=== PATIENT | male | born 1975 | race Caucasian/White ===

== ENCOUNTER → 2019-06-16 | Outpatient (CLI) | payer BC ==
--- NOTE | 2019-06-16 11:46 | Diagnostic Imaging Report ---
Thyroid ultrasound CPT code: 87752 History: Neck swelling Comparison: None Findings: The thyroid echotexture is normal. Vascularity is normal. The right lobe measures 5.3 x 1.9 x 1.8 cm. The left lobe measures 5.2 x 1.8 x 1.7 cm. The isthmus measures 0.7 cm. Nodules (measurements are AP, transverse, craniocaudal): Right Lobe: No cystic mass or discrete solid nodule identified. Left Lobe: 1.5 x 0.7 x 1.3 cm hypoechoic solid nodule at the superior pole, wider than tall, without internal calcification (TI-RADS 4) 0.6 x 0.2 x 0.6 cm hypoechoic solid nodule at the mid pole, wider than tall without internal calcifications (TI-RADS 4) Isthmus: No cystic mass or discrete solid nodule identified. Lymph Nodes: 0.8 x 0.3 cm lymph node superior to the isthmus. Parathyroids: Not visualized. IMPRESSION: 1.5 x 0.7 x 1.3 cm hypoechoic solid nodule at the left thyroid superior pole, wider than tall, without internal calcification (TI-RADS 4). Recommend FNA. 0.6 x 0.2 x 0.6 cm hypoechoic solid nodule at the left thyroid mid pole, wider than tall without internal calcifications (TI-RADS 4). Recommend follow-up at 1,2, 3 and 5 years. ACR glossary of thyroid rads TI-RADS 1: No focal lesion. TI-RADS 2: Not suspicious. TI-RADS 3: Mildly suspicious (recommend FNA is greater than or equal to 2.5 cm; follow-up at 1, 3, and 5 years if greater than or equal to 1.5 cm) TI-RADS 4: Moderately Suspicious (recommend FNA is greater than or equal to 1.5 cm; follow-up at 1, 2, 3, and 5 years) TI-RADS 5: Highly suspicious (recommend FNA is greater than or equal to 10 mm) TI-RADS 6: Biopsy-proven malignancy Signed by: Andrew Rasheed MD on 06/16/2019 11:43 AM
== END ==
LOC: US 10:22
PROVIDERS: ATTEND Internal Medicine
DX: R22.1 Localized swelling, mass and lump, neck (principal)
CPT/HCPCS: 76536

== ENCOUNTER → 2019-06-27 | Outpatient (CLI) | payer BC ==
--- NOTE | 2019-07-13 12:06 | Diagnostic Imaging Report ---
EXAM: Complete Abdominal Ultrasound INDICATION: Generalized abdominal pain COMPARISON: None. TECHNIQUE: Transverse and longitudinal images of the upper abdomen were obtained. FINDINGS: Liver: Size: 15.9 cm in the right midclavicular line, upper limit of normal Appearance: Increased echogenicity, smooth contour Mass: No focal masses Spleen: Size: 11.0 cm in length, normal Echogenicity: Normal Mass: No focal masses Gallbladder: Stones/Sludge: None Wall: 0.2 cm Appearance: No wall thickening, pericholecystic fluid or hydrops. Sonographic Hsieh's Sign: Negative Bile Ducts: Intrahepatic Ducts: No dilatation Extrahepatic Ducts: Common bile duct measures 0.3 cm, no dilatation Pancreas: Visualized portions of the neck and proximal body are unremarkable. Kidneys: Length: Right 10.5 cm Left 11.5 cm Echogenicity: Normal Collecting System: No hydronephrosis Stone: None Cyst/Mass: 2.2 x 1.3 x 1.4 cm cystic, mostly anechoic lesion in the interpolar region of the right kidney, which contains a single thin nonvascular septation. No mural nodules 2.7 x 2.1 x 2.3 cm mostly exophytic anechoic lesion in the mid aspect of the left kidney. 1.4 x 0.9 x 1.2 cm mostly exophytic cystic, anechoic lesion in the lateral superior aspect of the left kidney. 2.9 x 2.6 x 2.8 cm mostly exophytic cystic, anechoic lesion in the medial inferior aspect of the left kidney Vessels: Aorta: Visualized portions are normal Inferior Vena Cava: Visualized portions are normal Main Portal Vein: 1.0 cm, normal size with hepatopetal flow. Free Fluid: No ascites or pleural effusion IMPRESSION: 1. Hepatic steatosis. No focal lesions. 2. Minimally complex cyst in the interpolar region of the right kidney, which requires no further follow-up. 3. 3 simple left renal cysts, which require no further follow-up. Signed by: Dr. Maxx Sy M.D. on 07/13/2019 12:03 PM
== END ==
LOC: US 16:09
PROVIDERS: ATTEND Internal Medicine Gastroenterology
DX: R10.84 Generalized abdominal pain (principal)
CPT/HCPCS: 76700

== ENCOUNTER → 2019-09-19 | Day surgery (SDC) | payer BC ==
[~2019-09-19] MED LIST: ARMOUR THYROID60 MG PO; DIOVAN80 MG PO; FENTANYL CITRATE/PF 100MCG/2 ML INJ ONE; HYOSCYAMINE 0.125 MG TAB ONE; MIDAZOLAM HCL 2 MG/2 ML VIAL ONE; PROPOFOL IV EMULSION 10 MG/ML 50 ML VIAL ONE
--- OUTSIDE RECORDS SUMMARY | 2019-09-19 08:52 | XMS REPORT ---
Author Author [facility] Address Unknown Phone Unavailable Care Team Providers Care Shirt Presser Name Role Phone CANDACE EMERY Unavailable Unavailable Cookie ORDOÑEZ Unavailable Unavailable Problems This patient has no known problems. Allergies, Adverse Reactions, Alerts This patient has no known allergies or adverse reactions. Medications This patient has no known medications. Results Test Description Test Time Test Comments Text Results Atomic Results Result Comments US ABDOMEN COMPLETE 2019-06-27 19:55:00 [place] [address] Patient Name: MARTÍN GTZ MR #: [id number] : 1975 Age/Sex: 44/M Req #: [id number] Adm Physician: Ordered by: CANDACE EMERY MD Report #: [id number] Location: US Room/Bed: Procedure: [id number] US/US ABDOMEN COMPLETE Exam Date: 06/27/19 Exam Time: 1645 REPORT STATUS: Signed EXAM: Complete Abdominal Ultrasound INDICATION: Generalized abdominal pain COMPARISON: None. TECHNIQUE: Transverse and longitudinal images of the upper abdomen were obtained. FINDINGS: Liver: Size: 15.9 cm in the right midclavicular line, upper limit of normal Appearance: Increased echogenicity, smooth contour Mass: No focal masses Spleen: Size: 11.0 cm in length, normal Echogenicity: Normal Mass: No focal masses Gallbladder: Stones/Sludge: None Wall: 0.2 cm Appearance: No wall thickening, pericholecystic fluid or hydrops. Sonographic Hsieh's Sign: Negative Bile Ducts: Intrahepatic Ducts: No dilatation Extrahepatic Ducts: Common bile duct measures 0.3 cm, no dilatation Pancreas: Visualized portions of the neck and proximal body are unremarkable. Kidneys: Length: Right 10.5 cm Left 11.5 cm Echogenicity: Normal Collecting System: No hydronephrosis Stone: None Cyst/Mass: 2.2 x 1.3 x 1.4 cm cystic, mostly anechoic lesion in the interpolar region of the right kidney, which contains a single thin nonvascular septation. No mural nodules 2.7 x 2.1 x 2.3 cm mostly exophytic anechoic lesion in the mid aspect of the left kidney. 1.4 x 0.9 x 1.2 cm mostly exophytic cystic, anechoic lesion in the lateral superior aspect of the left kidney. 2.9 x 2.6 x 2.8 cm mostly exophytic cystic, anechoic lesion in the medial inferior aspect of the left kidney Vessels: Aorta: Visualized portions are normal Inferior Vena Cava: Visualized portions are normal Main Portal Vein: 1.0 cm, normal size with hepatopetal flow. Free Fluid: No ascites or pleural effusion IMPRESSION: 1. Hepatic steatosis. No focal lesions. 2. Minimally complex cyst in the interpolar region of the right kidney, which requires no further follow-up. 3. 3 simple left renal cysts, which require no further follow-up. Signed by: Dr. Benny Sy M.D. on 07/13/2019 12:03 PM Dictated By: BENNY SY MD 1203 Transcribed By: JAILENE on 07/13/19 1203 COPY TO: CANDACE EMERY MD THYROID 2019-06-16 11:35:00 [place] [address] Patient Name: MARTÍN GTZ MR #: [id number] : 1975 Age/Sex: 44/M Req #: [id number] Adm Physician: Ordered by: AURY ORDOÑEZ MD Report #: [id number] Location: Room/Bed: Procedure: [id number] US/US THYROID Exam Date: Exam Time: REPORT STATUS: Signed Thyroid ultrasound CPT code: 31564 History: Neck swelling Comp arison: None Findings: The thyroid echotexture is normal. Vascularity is normal. The right lobe measures 5.3 x 1.9 x 1.8 cm. The left lobe measures 5.2 x 1.8 x 1.7 cm. The isthmus measures 0.7 cm. Nodules (measurements are AP, transverse, craniocaudal): Right Lobe: No cystic mass or discrete solid nodule identified. Left Lobe: 1.5 x 0.7 x 1.3 cm hypoechoic solid nodule at the superior pole, wider than tall, without internal calcification (TI-RADS 4) 0.6 x 0.2 x 0.6 cm hypoechoic solid nodule at the mid pole, wider than tall without internal calcifications (TI- RADS 4) Isthmus: No cystic mass or discrete solid nodule identified. Lymph Nodes: 0.8 x 0.3 cm lymph node superior to the isthmus. Parathyroids: Not visualized. IMPRESSION: 1.5 x 0.7 x 1.3 cm hypoechoic solid nodule at the left thyroid superior pole, wider than tall, without internal calcification (TI-RADS 4). Recommend FNA. 0.6 x 0.2 x 0.6 cm hypoechoic solid nodule at the left thyroid mid pole, wider than tall without internal calcifications (TI-RADS 4). Recommend follow-up at 1,2, 3 and 5 years. ACR glossary of thyroid rads TI-RADS 1: No focal lesion. TI-RADS 2: Not suspicious. TI-RADS 3: Mildly suspicious (recommend FNA is greater than or equal to 2.5 cm; follow-up at 1, 3, and 5 years if greater than or equal to 1.5 cm) TI-RADS 4: Moderately Suspicious (recommend FNA is greater than or equal to 1.5 cm; follow-up at 1, 2, 3, and 5 years) TI-RADS 5: Highly suspicious (recommend FNA is greater than or equal to 10 mm) TI-RADS 6: Biopsy-proven malignancy Signed by: Sia Callahan MD on 06/16/2019 11:43 AM Dictated By: SIA CALLAHAN MD 1143 Transcribed By: JAILENE on 06/16/19 1143 COPY TO: AURY ORDOÑEZ MD
[2019-09-19 13:30] VITALS: BP 112/70
--- NOTE | 2019-09-19 19:30 | Operative Report ---
DATE OF PROCEDURE: 09/19/2019 SURGEON: Reggie Collins MD PROCEDURE: Esophagogastroduodenoscopy with biopsies and esophageal dilatation and colonoscopy with biopsies. REFERRING PHYSICIAN: Dr. Genoveva Acosta INDICATIONS FOR EGD: Dysphagia, acid reflux. INDICATIONS FOR COLONOSCOPY: Diarrhea, rectal pain. MEDICATION: The patient was done under MAC, please see anesthesiologist's note. PROCEDURE IN DETAIL: With the patient in left lateral decubitus position, a flexible fiberoptic Olympus gastroscope was introduced into the esophagus under direct visualization without any difficulty. There was some patchy erythema noted in distal esophagus. A mild stricture was noted at the GE junction, that was dilated to size 52-[place]. The scope was then advanced with ease into the stomach. Mucosa overlying the antrum and the body revealed some patchy erythema and low-grade to moderate edema and biopsies were obtained and sent to stain for H pylori. Pylorus was of normal contour and shape, was intubated with ease and the scope was advanced all the way to the second portion of the duodenum. Biopsies were obtained from the proximal second portion and duodenal bulb to rule out sprue. The scope was then withdrawn back into the stomach and retroflexed, and mucosa overlying the fundus and the cardia appeared to be within normal limits. The scope was then straightened out. The stomach was decompressed. The scope was subsequently withdrawn. The patient tolerated procedure well. IMPRESSION: 1. Distal esophagitis, mild. 2. Esophagus dilated to size 52-[place]. 3. Gastritis, biopsied. Biopsies sent to stain for Helicobacter pylori. 4. Rule out sprue. PLAN: Follow up histology. Initiate Protonix 40 mg one p.o. q.a.m. a.c. The patient was then turned around after adequate lubrication of the anal canal and flexible fiberoptic Olympus. Colonoscope was inserted into the rectum with ease and advanced all the way to the cecum. The ileocecal valve was intubated and the scope was advanced into the terminal ileum. Biopsies were obtained. The scope was then withdrawn back into the colon. It was then withdrawn slowly. Mucosa overlying the ascending colon, transverse colon grossly was unremarkable. Mild patchy inflammatory changes were noted in the left colon including the rectum and biopsies were obtained. A minute raised area was noted in the distal rectum just proximal to the dentate line and that was biopsied. Some small internal hemorrhoids were noted on retroflexion. The scope was then straightened out, it was subsequently withdrawn. The patient tolerated procedure well. IMPRESSION: 1. Mild patchy left-sided colitis. 2. Proctitis. 3. Focal raised area distal rectum just proximal to the dentate line, biopsied. 4. Internal hemorrhoids, none actively bleeding. PLAN: Follow up histology. Initiate Bentyl 20 mg one p.o. t.i.d. VSL #3 one p.o. daily. Reggie Collins MD [facility] [place] /[id number] cc: Dr. Chris Acosta
== END | disposition home or self-care (01) ==
LOC: OR 08:46
PROVIDERS: ATTEND Internal Medicine Gastroenterology
DX: K29.70 Gastritis, unspecified, without bleeding (principal); K22.2 Esophageal obstruction; K51.50 Left sided colitis without complications; K20.9 Esophagitis, unspecified; K62.89 Other specified diseases of anus and rectum; K64.8 Other hemorrhoids; I10 Essential (primary) hypertension; I49.1 Atrial premature depolarization; R05 Cough; Z01.810 Encounter for preprocedural cardiovascular examination
CPT/HCPCS: 43239; 43450; 45380; 93005; J2250; J2704; J3010; 45378; 45384

== ENCOUNTER → 2020-12-10 | Outpatient (CLI) | payer BC ==
[~2020-12-10] MED LIST changes: +DIATRIZOATE MEGL/DIATRIZOA SOD 30 ML BTL PO ONE; -FENTANYL CITRATE/PF 100MCG/2 ML INJ ONE; -HYOSCYAMINE 0.125 MG TAB ONE; +IOPAMIDOL 370 MG/ML 200 ML INFUS..BTL INJ ONE; -MIDAZOLAM HCL 2 MG/2 ML VIAL ONE; -PROPOFOL IV EMULSION 10 MG/ML 50 ML VIAL ONE; +SODIUM CHLORIDE 0.9% 50ML 50 ML ONE
[2020-12-10 14:40] LABS: BLOOD UREA NITROGEN 14 mg/dL (7-26); BUN/CREATININE RATIO 13 (6-25); CREATININE, SERUM 1.04 mg/dL (0.72-1.25); EST GLOMERULAR FILTRATION RATE > 60 ML/MIN (60-)
== END ==
LOC: CT 13:44
PROVIDERS: ATTEND Internal Medicine
DX: G89.18 Other acute postprocedural pain (principal); K76.0 Fatty (change of) liver, not elsewhere classified
CPT/HCPCS: 36415; 74177; 82565; 84520; Q9967

== ENCOUNTER 2021-02-02 15:19 | Emergency (ER) | payer BC ==
[~2021-02-02] VITALS: Ht 190.5 cm; Wt 104.3 kg
[~2021-02-02 15:19] MED LIST changes: -DIATRIZOATE MEGL/DIATRIZOA SOD 30 ML BTL PO ONE; -IOPAMIDOL 370 MG/ML 200 ML INFUS..BTL INJ ONE; -SODIUM CHLORIDE 0.9% 50ML 50 ML ONE
[2021-02-02] MEDS ORDERED: SODIUM CHLORIDE 0.9% 1000ML 1,000 ML IV STA (15:46)
[2021-02-02] MEDS ORDERED: PANTOPRAZOLE 40 MG 10ML VIAL IV STA (15:46)
[2021-02-02 15:58] LABS: BASOPHILS # (AUTO) 0.1 (0.0-0.1); BASOPHILS % 0.8 % (0.0-1.0); EOSINOPHILS # (AUTO) 0.1 (0.0-0.4); EOSINOPHILS % 1.3 % (0.0-6.0); HEMOGLOBIN 15.5 g/dL (14.0-18.0); LYMPHOCYTES % 33.1 % (18.0-39.1); MEAN CORPUSCULAR HEMOGLOBIN 29.4 pg (28-32); MEAN CORPUSCULAR HGB CONC 34.4 g/dL (31-35); MEAN CORPUSCULAR VOLUME 85.4 fL (81-99); MONOCYTES # (AUTO) 1.1 (0.2-0.8); MONOCYTES % 11.9 % (4.4-11.3); NEUTROPHILS # (AUTO) 4.8 (2.1-6.9); NEUTROPHILS % 52.5 % (38.7-80.0); PLATELET COUNT 277 x10e3/uL (140-360); RED BLOOD COUNT 5.27 x10e6/uL (4.3-5.7); RED CELL DISTRIBUTION WIDTH 12.8 % (11.7-14.4)
[2021-02-02 16:02] LABS: CLARITY,URINE SL CLOUDY (CLEAR); COLOR,URINE STRAW (YELLOW); KETONES,URINE NEGATIVE (NEGATIVE); LEUKOCYTE ESTERASE ,URINE NEGATIVE (NEGATIVE); NITRITE,URINE NEGATIVE (NEGATIVE); PROTEIN,URINE DIPSTICK TRACE (NEGATIVE); URINE UROBILINOGEN 1 mg/dL (0.2 - 1)
[2021-02-02 16:04] LABS: INR 0.93
[2021-02-02 16:05] LABS: PARTIAL THROMBOPLASTIN TIME 28.2 seconds (23.8-35.5)
[2021-02-02 16:11] LABS: AMPHETAMINES SCREEN,URINE NEGATIVE (NEGATIVE); BENZODIAZEPINES SCREEN,URINE NEGATIVE (NEGATIVE); PHENCYCLIDINE SCREEN,URINE NEGATIVE (NEGATIVE)
[2021-02-02 16:13] LABS: BACTERIA,URINE MODERATE /HPF
[2021-02-02 16:15] LABS: ALANINE AMINOTRANSFERASE 50 IU/L (0-55); ALBUMIN 4.4 g/dL (3.5-5.0); ALBUMIN/GLOBULIN RATIO 1.2 (0.8-2.0); ALKALINE PHOSPHATASE 57 IU/L (40-150); ANION GAP 17.1 mmol/L (8-16); BLOOD UREA NITROGEN 17 mg/dL (7-26); BUN/CREATININE RATIO 13 (6-25); CALCIUM 8.6 mg/dL (8.4-10.2); CARBON DIOXIDE 20 mmol/L (22-29); CHLORIDE 104 mmol/L (98-107); CREATINE KINASE 118 IU/L (30-200); CREATININE, SERUM 1.26 mg/dL (0.72-1.25); EST GLOMERULAR FILTRATION RATE > 60 ML/MIN (60-); GLUCOSE 121 mg/dL (74-118); LIPASE 34 U/L (8-78); POTASSIUM 3.1 mmol/L (3.5-5.1); SODIUM 138 mmol/L (136-145)
[2021-02-02] MEDS ORDERED: POTASSIUM CHLORIDE 20 MEQ TAB CR PO STA (17:13)
[2021-02-02] MEDS ORDERED: SODIUM CHLORIDE 0.9% 50ML 50 ML ONE (17:43)
[2021-02-02] MEDS ORDERED: IOPAMIDOL 370 MG/ML 200 ML INFUS..BTL INJ ONE (17:44)
[2021-02-02 19:12] LABS: CREATINE KINASE 109 IU/L (30-200)
[2021-02-02 21:18] VITALS: BP 128/72
== END 2021-02-02 21:28 | disposition home or self-care (01) ==
LOC: ER 15:45
DX: K29.70 Gastritis, unspecified, without bleeding (principal); R10.9 Unspecified abdominal pain; R94.31 Abnormal electrocardiogram [ECG] [EKG]; I10 Essential (primary) hypertension; E03.9 Hypothyroidism, unspecified; K76.0 Fatty (change of) liver, not elsewhere classified
CPT/HCPCS: 36415; 71045; 74177; 80053; 80307; 81001; 82550; 82553; 83690; 83735; 84484; 85025; 85379; 85610; 85730; 87086; 93005; 99284; C9113; J7030; Q9967

== ENCOUNTER 2021-08-23 07:01 | Emergency (ER) | payer BC, OTHER ==
[~2021-08-23] VITALS: Ht 188 cm; Wt 104.3 kg
[2021-08-23 07:34] LABS: BASOPHILS # (AUTO) 0.1 (0.0-0.1); EOSINOPHILS # (AUTO) 0.1 (0.0-0.4); EOSINOPHILS % 2.2 % (0.0-6.0); HEMATOCRIT 46.4 % (38.2-49.6); HEMOGLOBIN 15.4 g/dL (14.0-18.0); LYMPHOCYTES # (AUTO) 1.9 (1.0-3.2); MEAN CORPUSCULAR HEMOGLOBIN 29.8 pg (28-32); MEAN CORPUSCULAR HGB CONC 33.2 g/dL (31-35); MEAN CORPUSCULAR VOLUME 89.7 fL (81-99); MONOCYTES # (AUTO) 0.7 (0.2-0.8); MONOCYTES % 11.8 % (4.4-11.3); NEUTROPHILS # (AUTO) 3.1 (2.1-6.9); NEUTROPHILS % 52.7 % (38.7-80.0); PLATELET COUNT 268 x10e3/uL (140-360); RED BLOOD COUNT 5.17 x10e6/uL (4.3-5.7); RED CELL DISTRIBUTION WIDTH 12.5 % (11.7-14.4)
[2021-08-23 07:56] LABS: ALBUMIN 4.4 g/dL (3.5-5.0); ALBUMIN/GLOBULIN RATIO 1.4 (0.8-2.0); ANION GAP 11.7 mmol/L (8-16); MAGNESIUM 2.2 MG/DL (1.3-2.1); POTASSIUM 3.7 mmol/L (3.5-5.1)
[2021-08-23 08:23] LABS: THYROID STIMULATING HORMONE 0.8 uIU/mL (0.350-4.940)
[2021-08-23] MEDS ORDERED: SODIUM CHLORIDE 0.9% 1000ML 1,000 ML IV STA (09:10)
[2021-08-23] MEDS ORDERED: SODIUM CHLORIDE 0.9% 100 ML ONE (10:22)
[2021-08-23] MEDS ORDERED: IOPAMIDOL 370 MG/ML 200 ML INFUS..BTL INJ ONE (10:22)
[2021-08-23 11:12] LABS: CREATINE KINASE 102 IU/L (30-200)
[2021-08-23 11:55] VITALS: BP 123/80
== END 2021-08-23 11:56 | disposition home or self-care (01) ==
LOC: ER 07:10
DX: R07.89 Other chest pain (principal); I10 Essential (primary) hypertension; E03.9 Hypothyroidism, unspecified
CPT/HCPCS: 36415; 71045; 71275; 80053; 82550; 82553; 83690; 83735; 84443; 84484; 85025; 93005; 99284; J7030; J7050; Q9967; U0002

== ENCOUNTER → 2022-04-26 | Outpatient (CLI) | payer BC | LOC: CT 15:30 | PROVIDERS: ATTEND Internal Medicine | DX: D35.00 Benign neoplasm of unspecified adrenal gland (principal); N28.1 Cyst of kidney, acquired | CPT/HCPCS: 74150 ==

== ENCOUNTER → 2022-06-15 | Outpatient (CLI) | payer BC ==
[~2022-06-15] MED LIST changes: +IOPAMIDOL 370 MG/ML 100 ML INFUS..BTL INJ ONE
[2022-06-15 17:06] LABS: CREATININE, SERUM 1.15 mg/dL (0.72-1.25)
== END ==
LOC: CT 16:20
PROVIDERS: ATTEND Internal Medicine
DX: R59.0 Localized enlarged lymph nodes (principal)
CPT/HCPCS: 36415; 70491; 82565; 84520; Q9967